=== PATIENT | female | born 1945 | race Caucasian/White ===

== ENCOUNTER 2017-01-10 10:51 | Outpatient (CLI) | payer OTHER ==
--- NOTE | 2017-01-10 11:47 | DIAGNOSTIC IMAGING REPORT ---
PROCEDURE: DEXA BONE DENSITY STUDY CLINICAL INDICATION: Osteoporosis, personal history of hip or vertebral fracture, taking Fosamax, vitamin D, calcium. COMPARISON: 11/27/2015 FINDINGS: LUMBAR SPINE: Bone mineral density 0.817 g/cm2, T score -2.1, osteopenia change from previous 8.7 percent (significant) LEFT HIP: Bone mineral density 0.398 g/cm2, T score -4.5, osteoporosis, change from previous -7.3 percent (significant) . LEFT FEMORAL NECK: Bone mineral density 0.391 g/cm2, T score -4.1, osteoporosis, change from previous 7.7 percent . FRACTURE RISK CALCULATION ( when applicable): Not calculated because some T scores are below -2.5 (T score greater or equal to -1.0 to: NORMAL) (T score from -1.1 to -2.4: OSTEOPENIA) (T score ess than or equal to -2.5: OSTEOPOROSIS) IMPRESSION: 1. Osteoporosis puts the patient at a high risk of fracture. 2. Significant interval improvement in lumbar spine bone mineral density. 3. Significant interval decrease in overall left hip bone mineral density.
== END 2017-01-10 23:00 ==
LOC: XR SRH 10:51
DX: M81.0 Age-related osteoporosis without current pathological fracture (principal)